=== PATIENT | female | born 1975 | race Caucasian/White ===

== ENCOUNTER 2021-04-07 14:11 | Inpatient (IN) | payer OTHER ==
[~2021-04-07] VITALS: Ht 170.2 cm; Wt 101.7 kg
[2021-04-07 16:09] LABS: EOSINOPHIL 1.8 % (0-5); HCT 46.4 % (37.0-47.0); LYMPHOCYTE 28.5 % (15-48); MCH 29.3 pg (25.0-31.0); MCHC 32.3 g/dL (32.0-36.0); MCV 90.6 fL (78.0-100.0); MONOCYTE 6.1 % (0-12); MPV 10.2 fL (6.0-9.5); NEUTROPHIL 62.4 % (41-80); NRBC 0; PLT 219 K/uL (150-400); RBC 5.12 M/uL (4.20-5.40); RDW 13.2 % (11.5-14.0); WBC 8.4 K/uL (4.0-10.5)
[2021-04-07 16:43] LABS: ALBUMIN 3.5 g/dL (3.4-5.0); BILIRUBIN - TOTAL 0.4 mg/dL (0.2-1.0); BUN/CREAT RATIO (CALC) 14.7 RATIO; CREATININE 0.68 mg/dL (0.51-0.95); GLOBULIN (CALCULATION) 3.8 g/dL; POTASSIUM 4.2 mmol/L (3.5-5.1); TOTAL PROTEIN 7.3 g/dL (6.4-8.2)
[2021-04-08 05:58] LABS: BASOPHIL 0.2 % (0-2); EOSINOPHIL 0.1 % (0-5); HCT 43.1 % (37.0-47.0); HGB 14.3 g/dl (12.5-16.0); LYMPHOCYTE 15.6 % (15-48); MCH 29.4 pg (25.0-31.0); MCHC 33.2 g/dL (32.0-36.0); MCV 88.5 fL (78.0-100.0); MONOCYTE 1.6 % (0-12); MPV 10.4 fL (6.0-9.5); NEUTROPHIL 81.8 % (41-80); NRBC 0; PLT 243 K/uL (150-400); RBC 4.87 M/uL (4.20-5.40); RDW 12.8 % (11.5-14.0); WBC 8.3 K/uL (4.0-10.5)
[2021-04-08 06:19] LABS: ALBUMIN 3.1 g/dL (3.4-5.0); BILIRUBIN - TOTAL 0.3 mg/dL (0.2-1.0); BUN/CREAT RATIO (CALC) 17.9 RATIO; C-REACTIVE PROTEIN 0.7 mg/dL (<=0.90); CREATININE 0.56 mg/dL (0.51-0.95); GLOBULIN (CALCULATION) 3.6 g/dL; POTASSIUM 4.1 mmol/L (3.5-5.1); TOTAL PROTEIN 6.7 g/dL (6.4-8.2)
[2021-04-09 06:03] LABS: BASOPHIL 0.4 % (0-2); EOSINOPHIL 0.8 % (0-5); HCT 39.5 % (37.0-47.0); HGB 12.9 g/dl (12.5-16.0); LYMPHOCYTE 31.4 % (15-48); MCH 29.6 pg (25.0-31.0); MCHC 32.7 g/dL (32.0-36.0); MCV 90.6 fL (78.0-100.0); MONOCYTE 6.2 % (0-12); MPV 10.5 fL (6.0-9.5); NEUTROPHIL 60.7 % (41-80); NRBC 0; PLT 198 K/uL (150-400); RBC 4.36 M/uL (4.20-5.40); RDW 13.2 % (11.5-14.0); WBC 11.3 K/uL (4.0-10.5)
[2021-04-09 06:30] LABS: ALBUMIN 2.7 g/dL (3.4-5.0); BILIRUBIN - TOTAL 0.2 mg/dL (0.2-1.0); CREATININE 0.6 mg/dL (0.51-0.95); GLOBULIN (CALCULATION) 3.1 g/dL; POTASSIUM 3.9 mmol/L (3.5-5.1); TOTAL PROTEIN 5.8 g/dL (6.4-8.2)
[2021-04-10 05:08] LABS: HBSAG SCREEN Negative (Negative); HEP A AB, IGM Negative (Negative); HEP B CORE AB, IGM Negative (Negative); HEP C VIRUS AB 0.2 (0.0-0.9)
[2021-04-10 06:30] LABS: BASOPHIL 0.5 % (0-2); EOSINOPHIL 1.9 % (0-5); HCT 40.4 % (37.0-47.0); HGB 13.3 g/dl (12.5-16.0); LYMPHOCYTE 35.9 % (15-48); MCH 29.4 pg (25.0-31.0); MCHC 32.9 g/dL (32.0-36.0); MCV 89.2 fL (78.0-100.0); MONOCYTE 6.6 % (0-12); MPV 10.4 fL (6.0-9.5); NEUTROPHIL 54.8 % (41-80); NRBC 0; PLT 197 K/uL (150-400); RBC 4.53 M/uL (4.20-5.40); RDW 13.1 % (11.5-14.0); WBC 9.3 K/uL (4.0-10.5)
[2021-04-10 07:17] LABS: ALBUMIN 2.8 g/dL (3.4-5.0); BILIRUBIN - TOTAL 0.4 mg/dL (0.2-1.0); BUN/CREAT RATIO (CALC) 12.3 RATIO; CREATININE 0.57 mg/dL (0.51-0.95); GLOBULIN (CALCULATION) 3.2 g/dL; POTASSIUM 3.7 mmol/L (3.5-5.1)
[2021-04-10] MEDS ORDERED: LACTOBACILLUS1 EACH PO (09:57)
[2021-04-10] MEDS ORDERED: MIRALAX17 GM PO (09:57)
[2021-04-10] MEDS ORDERED: HYDROCODON-ACE1 EAC6 PO (09:57)
[2021-04-10] MEDS ORDERED: VIBRAMYCIN100 MG PO (09:57)
[2021-04-10] MEDS ORDERED: SENOKOT8.6 MG PO (09:57)
[2021-04-10] MEDS ORDERED: ZOFRAN4 M1 PO (10:06)
--- NOTE | 2021-04-10 10:37 | NUR ---
CALL TO PCP AND PATIENT IS NEW TO THEM SO THEY WILL NOT MAKE HER APT AT THIS TIME WAS INFORMED TO SEND D/C SUMMARY AND HAVE PATIENT CALL TO MAKE APT
== END 2021-04-10 11:25 | disposition home or self-care (01) | DRG 603 ==
LOC: FER 14:11 → FMS 17:24
PROVIDERS: Internal Medicine; ADMIT Family Medicine
DX: L03.211 Cellulitis of face (principal); L03.213 Periorbital cellulitis; Z20.822 Contact with and (suspected) exposure to COVID-19; E66.9 Obesity, unspecified; E11.65 Type 2 diabetes mellitus with hyperglycemia; E78.5 Hyperlipidemia, unspecified; R11.2 Nausea with vomiting, unspecified; Z68.35 Body mass index [BMI] 35.0-35.9, adult; Z90.49 Acquired absence of other specified parts of digestive tract; Z90.710 Acquired absence of both cervix and uterus; Z90.89 Acquired absence of other organs; Z88.0 Allergy status to penicillin; Z88.2 Allergy status to sulfonamides; Z88.6 Allergy status to analgesic agent; Z82.49 Family history of ischemic heart disease and other diseases of the circulatory system; Z85.41 Personal history of malignant neoplasm of cervix uteri
CPT/HCPCS: 36415; 70486; 80053; 80074; 80202; 82962; 83036; 83605; 83690; 84145; 84443; 85025; 86140; 87040; 93005; 96372; J0692; J0780; J1100; J1170; J1650; J1815; J2405; J3370; J7030; J7050; U0002

== ENCOUNTER 2021-12-20 16:33 | Emergency (ER) | payer OTHER ==
[~2021-12-20 16:33] MED LIST: HYDROCODON-ACE1 EAC6 PO; LACTOBACILLUS1 EACH PO; MIRALAX17 GM PO; SENOKOT8.6 MG PO; VIBRAMYCIN100 MG PO; ZOFRAN4 M1 PO
[2021-12-20 19:03] LABS: BILIRUBIN NEGATIVE (NEGATIVE); BLOOD 3+ Ery/uL (NEGATIVE); CLARITY CLEAR (CLEAR); COLOR YELLOW (YELLOW); GLUCOSE (U) 3+ mg/dL (NORMAL); LEUKOCYTES NEGATIVE Leu/uL (NEGATIVE); NITRITE NEGATIVE (NEGATIVE); PROTEIN NEGATIVE (NEGATIVE); SPECIFIC GRAVITY >=1.030 (1.001-1.030); UROBILINOGEN 0.2 mg/dL (0.2-1.0)
[2021-12-20 19:18] LABS: URIC ACID CRYSTALS LARGE; URINARY RBC TNTC
[2021-12-20 20:00] LABS: BASOPHIL 0.6 % (0-2); EOSINOPHIL 1.8 % (0-5); HCT 44.4 % (37.0-47.0); HGB 14.8 g/dl (12.5-16.0); LYMPHOCYTE 31.2 % (15-48); MCH 28.8 pg (25.0-31.0); MCHC 33.3 g/dL (32.0-36.0); MCV 86.4 fL (78.0-100.0); MONOCYTE 5.5 % (0-12); MPV 10.3 fL (6.0-9.5); NEUTROPHIL 60.7 % (41-80); NRBC 0; PLT 209 K/uL (150-400); RBC 5.14 M/uL (4.20-5.40); RDW 12.3 % (11.5-14.0)
[2021-12-20 20:23] LABS: ALBUMIN 3.6 g/dL (3.4-5.0); BILIRUBIN - TOTAL 0.5 mg/dL (0.2-1.0); BUN/CREAT RATIO (CALC) 13.8 RATIO; CREATININE 0.58 mg/dL (0.51-0.95); GLOBULIN (CALCULATION) 3.9 g/dL; POTASSIUM 3.8 mmol/L (3.5-5.1); TOTAL PROTEIN 7.5 g/dL (6.4-8.2)
[2021-12-21] MEDS ORDERED: ONDANSETRON ODT4 MG PO (01:21)
[2021-12-21] MEDS ORDERED: PHENERGAN25 M1 PO (01:21)
== END 2021-12-21 03:06 | disposition home or self-care (01) ==
LOC: FER 16:33
PROVIDERS: Nurse Practitioner Family
DX: R10.10 Upper abdominal pain, unspecified (principal); R11.2 Nausea with vomiting, unspecified; Z28.310 Unvaccinated for COVID-19; Z88.0 Allergy status to penicillin; Z88.2 Allergy status to sulfonamides; Z88.5 Allergy status to narcotic agent; Z87.891 Personal history of nicotine dependence
CPT/HCPCS: 36415; 80053; 81001; 85025; J1170; J2060; J2270; J2405; J2550; J7030; J7120; Q9967

== ENCOUNTER 2022-03-11 19:01 | Emergency (ER) | payer OTHER ==
[~2022-03-11 19:01] MED LIST changes: +ONDANSETRON ODT4 MG PO; +PHENERGAN25 M1 PO
[2022-03-11 20:05] LABS: CLARITY CLEAR (CLEAR); COLOR YELLOW (YELLOW)
[2022-03-11 20:06] LABS: BILIRUBIN NEGATIVE (NEGATIVE); BLOOD 3+ Ery/uL (NEGATIVE); GLUCOSE (U) 3+ mg/dL (NORMAL); LEUKOCYTES NEGATIVE Leu/uL (NEGATIVE); NITRITE NEGATIVE (NEGATIVE); PROTEIN NEGATIVE (NEGATIVE); UROBILINOGEN 0.2 mg/dL (0.2-1.0); pH 5.5 (5.0-9.0)
[2022-03-11 20:11] LABS: BACTERIA TRACE; MUCOUS TRACE; URINARY RBC 20-50; URINARY WBC RARE
[2022-03-11 20:51] LABS: HCT 43.6 % (37.0-47.0); HGB 14.7 g/dl (12.5-16.0); MCH 29.3 pg (25.0-31.0); MCHC 33.7 g/dL (32.0-36.0); MCV 86.9 fL (78.0-100.0); MPV 10.2 fL (6.0-9.5); RBC 5.02 M/uL (4.20-5.40); RDW 12.8 % (11.5-14.0); WBC 7.9 K/uL (4.0-10.5)
[2022-03-11 21:17] LABS: BUN/CREAT RATIO (CALC) 16.4 RATIO; CREATININE 0.61 mg/dL (0.51-0.95); POTASSIUM 4.1 mmol/L (3.5-5.1)
[2022-03-11] MEDS ORDERED: DIFLUCAN150 MG PO (23:20)
[2022-03-11] MEDS ORDERED: NORCO 5-325 TA1 EACH PO (23:20)
[2022-03-11] MEDS ORDERED: LIDOCAINE 2%30 ML TOP (23:20)
[2022-03-12] MEDS ORDERED: ONDANSETRON ODT4 MG PO (02:56)
== END 2022-03-12 04:00 | disposition home or self-care (01) ==
LOC: FER 19:01
PROVIDERS: Emergency Medicine
DX: N89.8 Other specified noninflammatory disorders of vagina (principal); R31.9 Hematuria, unspecified; K76.0 Fatty (change of) liver, not elsewhere classified; R16.2 Hepatomegaly with splenomegaly, not elsewhere classified; E11.9 Type 2 diabetes mellitus without complications; Z28.310 Unvaccinated for COVID-19
CPT/HCPCS: 36415; 80048; 81001; J1170; J2060; J2405; J2550; J7030; Q9967